=== PATIENT | female | born 1990 | race Caucasian/White ===

== ENCOUNTER 2017-10-09 08:41 | Emergency (ER) | payer SELFPAY ==
[2017-10-09 08:41] VITALS: BMI 53.1
[2017-10-09 08:46] VITALS: PULSE 87; RESP 18; TEMP 98.1; O2SAT 96
[2017-10-09 08:47] VITALS: BP 113/69
[2017-10-09] MEDS ORDERED: Naproxen 550 mg Tab PO STA (09:20)
[2017-10-09] MEDS ORDERED: Naproxen 550 mg Tab PO ONE (09:29)
--- NOTE | 2017-10-09 09:38 | C.PDOC ---
History Of Present Illness 26 y/o female presents to ED with complaints of right lower back pain radiating to left leg for 3 weeks. Patient states she has been alternating Tylenol and Motrin for pain with mild improvement. Patient denies fever, abdominal pain, bowel/bladder incontinence, dysuria, hematuria, change in sensation or any other complaints at this time. Time Seen by Provider: 10/09/17 09:08 Chief Complaint (Nursing): Back Pain History Per: Patient History/Exam Limitations: no limitations Onset/Duration Of Symptoms: Days Current Symptoms Are (Timing): Still Present Quality Of Discomfort: "Pain" Past Medical History Reviewed: Historical Data, Nursing Documentation, Vital Signs Vital Signs: Last Vital Signs Temp 98.1 F 10/09/17 08:44 Pulse 87 10/09/17 08:44 Resp 18 10/09/17 08:44 BP 113/69 10/09/17 08:47 Pulse Ox 96 10/09/17 10:09 - Medical History PMH: No Chronic Diseases Surgical History: - [facility] Procedures LOW CERVICAL (10/05/14) Family History: States: No Known Family Hx - Social History Hx Alcohol Use: No Hx Substance Use: No - Immunization History Hx Tetanus Toxoid Vaccination: No Hx Influenza Vaccination: No Hx Pneumococcal Vaccination: No Review Of Systems Constitutional: Negative for: Fever, Chills Gastrointestinal: Negative for: Nausea, Vomiting, Abdominal Pain Genitourinary: Negative for: Dysuria, Incontinence Musculoskeletal: Positive for: Back Pain Skin: Negative for: Rash Neurological: Negative for: Weakness Physical Exam - Physical Exam Appears: Non-toxic, No Acute Distress, Other (obese) Skin: Warm, Dry, No Rash Head: Atraumatic, Normacephalic Eye(s): bilateral: Normal Inspection, EOMI Nose: Normal Oral Mucosa: Moist Neck: Normal ROM, Supple Chest: Symmetrical Respiratory: No Accessory Muscle Use Gastrointestinal/Abdominal: Normal Exam, Soft, No Tenderness, No Guarding Back: No CVA Tenderness, No Vertebral Tenderness, No Paraspinal Tenderness, Other (right paralumbar and buttock tenderness) Extremity: Normal ROM, Capillary Refill (<2 seconds) Neurological/Psych: Oriented x3, Normal Speech, Normal Cognition, Normal Motor, Normal Sensation Gait: Steady ED Course And Treatment O2 Sat by Pulse Oximetry: 96 (RA) Pulse Ox Interpretation: Normal - Other Rad LS spine X-Ray: Viewed By Me, Read By Radiologist Interpretation: PROCEDURE: Radiographs of the Lumbar Spine. HISTORY: pain. COMPARISON: No prior. FINDINGS: BONES: Normal alignment. No listhesis. No fracture. T11-12 and T12-L1 endplate spondylosis. Overall bone density appears relatively increased-correlate clinically - to determine if this is a normal variant for 26-year-old female or if any hematological abnormalities are present. DISC SPACES: Unremarkable. OTHER FINDINGS: SI joint iliac sided sclerotic arthrosis. IMPRESSION: No fracture. 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 Overall bone density appears relatively increased-correlate clinically - to determine if this is a normal variant for 26-year-old female or if any hematological abnormalities are present. Comments: Study marked for PA review . Progress Note: Naproxen administered. On reassessment, patient is resting comfortably, with improvement of back pain. Patient remains afebrile, with no bony tenderness, extremity numbness or weakness, or abdominal pain. Patient is ambulatory in the emergency department with no signs of discomfort. She was given the results of the XR and instructed to show her PMD/ortho at follow up. Patient was advised to follow up with physician/clinic in 1-2 days. Disposition - Disposition Disposition: HOME/ ROUTINE Disposition Time: 09:36 Condition: STABLE Additional Instructions: Rest and ice the area. Follow up with the clinic in 1-2 days. Return to ER if symptoms persist or worsen. Prescriptions: Cyclobenzaprine [Cyclobenzaprine HCl] 10 mg PO BID PRN #10 tab PRN Reason: Muscle Spasm Naproxen [Naprosyn] 1 tab PO BID PRN #20 tab PRN Reason: Pain Instructions: Sciatica (DC) Forms: [employer] ([place]rainian) - Clinical Impression Clinical Impression: Sciatica - PA / PIANO TE[employer]ER / Resident Statement MD/DO has reviewed & agrees with the documentation as recorded. - Scribe Statement The provider has reviewed the documentation as recorded by the Kelin Zeng All medical record entries made by the Emilibyudith were at my direction and personally dictated by me. I have reviewed the chart and agree that the record accurately reflects my personal performance of the history, physical exam, medical decision making, and the department course for this patient. I have also personally directed, reviewed, and agree with the discharge instructions and disposition.
--- NOTE | 2017-10-09 09:53 | RAD ---
Date of service: 10/09/2017 PROCEDURE: Radiographs of the Lumbar Spine. HISTORY: pain COMPARISON: No prior. FINDINGS: BONES: Normal alignment. No listhesis. No fracture. T11-12 and T12-L1 endplate spondylosis. Overall bone density appears relatively increased-correlate clinically - to determine if this is a normal variant for 26-year-old female or if any hematological abnormalities are present. DISC SPACES: Unremarkable. OTHER FINDINGS: SI joint iliac sided sclerotic arthrosis. IMPRESSION: No fracture. 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 Overall bone density appears relatively increased-correlate clinically - to determine if this is a normal variant for 26-year-old female or if any hematological abnormalities are present. Comments: Study marked for PA review .
== END 2017-10-09 10:09 | disposition home or self-care (01) ==
LOC: C.ER 08:41
DX: M54.30 Sciatica, unspecified side (principal)